=== PATIENT | female | born 1985 | race Caucasian/White ===

== ENCOUNTER 2016-08-25 11:28 | Emergency (ER) | payer OTHER ==
[~2016-08-25] VITALS: Wt 74.8 kg
[~2016-08-25 11:28] MED LIST: IBU-8800 MG; IBU-8800 MG PO; MOTRIN800 MG PO; PERCOCET 325 MG1 TA2 PO; PRENATAL1 TA1 PO; TRAMADOL HCL50 MG PO
[2016-08-25] MEDS ORDERED: PERCOCET 325 MG1 TA2 PO (13:43)
== END 2016-08-25 13:46 | disposition home or self-care (01) ==
LOC: ED 11:28
DX: S33.5XXA Sprain of ligaments of lumbar spine, initial encounter (principal); Z98.890 Other specified postprocedural states; Z79.899 Other long term (current) drug therapy; X58.XXXA Exposure to other specified factors, initial encounter; Y93.89 Activity, other specified; Y92.89 Other specified places as the place of occurrence of the external cause; Y99.9 Unspecified external cause status

== ENCOUNTER → 2016-09-01 | Outpatient (CLI) | payer OTHER ==
[2016-09-01 09:24] LABS: HEMATOCRIT 40.2 % (37.0-47.0); MEAN CELL VOLUME 85.2 fl (81.0-99.0); MEAN CORPUSCULAR HGB 27.5 pg (27.0-31.0); MEAN CORPUSCULAR HGB CONC 32.3 g/dl (33.0-37.0); RED BLOOD COUNT 4.72 10*6/uL (4.10-5.10); RED CELL DISTRI WIDTH 12.7 % (0-14.5); WHITE BLOOD COUNT 6.8 10*3/uL (4.8-10.8)
[2016-09-01 09:40] LABS: CHLORIDE 106 mmol/L (98-107); SODIUM 141 mmol/L (136-145)
[2016-09-01 10:02] LABS: ALBUMIN 3.8 gm/dl (3.1-4.5); ALKALINE PHOSPHATASE 63 U/L (45-117); BILIRUBIN, TOTAL 0.5 mg/dl (0.2-1.0); BUN 12 mg/dl (7-24); CARBON DIOXIDE 28 mmol/L (21-32); CHOLESTEROL 188 mg/dL (<200); EST GLOM FILT AFRICAN AMERICAN > 60 ml/min; GLUCOSE 89 mg/dL (65-99); HDL CHOLESTEROL 95 mg/dl (40-60); LDL CHOLESTEROL 83 mg/dL (9-159); SGOT/AST 31 IU/L (3-35); SGPT/ALT 43 U/L (12-78); TOTAL PROTEIN 7.4 gm/dL (6.4-8.2); TRIGLYCERIDES 49 mg/dl (<150); VLDL CHOLESTEROL 10 mg/dL (6-40)
[2016-09-01 10:04] LABS: VITAMIN D, 25-HYDROXY 26.6 ng/mL (30-100)
== END | disposition home or self-care (01) ==
LOC: LAB 08:58
PROVIDERS: Family Medicine
DX: K59.00 Constipation, unspecified (principal); E55.9 Vitamin D deficiency, unspecified; R53.83 Other fatigue

== ENCOUNTER → 2016-12-31 | Outpatient (CLI) | payer OTHER | END | disposition home or self-care (01) | LOC: US 13:30 | DX: N63 Unspecified lump in breast (principal); N64.4 Mastodynia ==

== ENCOUNTER 2018-12-25 18:34 | Inpatient (IN) | payer OTHER ==
[~2018-12-25] VITALS: Ht 165.1 cm; Wt 77.4 kg
--- NOTE | ~2018-12-25 | WRIGHTHP ---
[place], [place] PATIENT HISTORY AND PHYSICAL EXAM NAME: ALLYSSA WHEELER UNIT #: [id number] ROOM: [facility] DOCTOR: MAYA ALFONSO MD BIRTHDATE: [birth year] DOS: 12/26/2018 HISTORY OF PRESENT ILLNESS: The patient is 33 years old. The patient states that she had mowed her lawn, was putting a aircraft structural repairer away, was stung by a bee or a wasp, she is not entirely sure. Left side of her face got swollen. She had difficulty swallowing and arms and feet were tingling, so she decided to come into the Emergency Room. She had a bee sting about a year ago, which did not cause any troubles. In the ER, she was given epinephrine as well as Solu-Medrol and continued to have some swelling of the face and so she was admitted. This morning, she feels fine. She does not have any more complaints. Denies any chest pains, palpitations, shortness of breath. Does not have any fever, chills, not have any difficulty swallowing. PAST MEDICAL HISTORY: None significant. MEDICATIONS: None. SOCIAL HISTORY: She lives at home. She has 4 young kids. She is . FAMILY HISTORY: Significant for father with diabetes and hypertension. Mother is healthy. PHYSICAL EXAMINATION: GENERAL: She is awake and alert and oriented, in no distress. VITAL SIGNS: Graphic trend shows a pressure of 128/88, pulse of 68, respirations 18, temperature 98.2. LUNGS: Diminished breath sounds. Clear. HEART: Regular. ABDOMEN: Soft, scaphoid. EXTREMITIES: Without any edema. Left side of the face there is no evidence of swelling. ASSESSMENT AND PLAN: Bee sting with allergic reaction. This is resolved. The patient is stable and can be discharge to home today. The patient was given a prescription for EpiPen and a low dose cortisone for a few days. White cell count is elevated, most likely stress effect. [place], [place] PATIENT HISTORY AND PHYSICAL EXAM NAME: ALLYSSA WHEELER UNIT #: [id number] ROOM: [facility] DOCTOR: MAYA ALFONSO MD BIRTHDATE: [birth year] MAYA ALFONSO MD CM:HISPHYS:PATIENT HISTORY AND PHYSICAL EXAMINATION 5 8 MAYA ALFONSO MD 12/26/18918 interface
--- NOTE | ~2018-12-25 | EKG ---
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
[2018-12-25 18:34] VITALS: BP 162/95
--- NOTE | 2018-12-25 18:55 | NUR ---
PT SATES SHE IS FEELING MUCH BETTER, EPI EFFECTIVE.
[2018-12-25 19:08] LABS: BASO % 0.3 % (0.0-1.0); EOS # 0.1 10*3/uL (0.0-0.4); HEMATOCRIT 40.2 % (37.0-47.0); HEMOGLOBIN 13.3 g/dl (12.0-16.0); LYMPH # 3.8 10*3/uL (1.3-4.4); LYMPH % 33.7 % (27.0-41.0); MEAN CELL VOLUME 86.8 fl (81.0-99.0); MEAN CORPUSCULAR HGB 28.7 pg (27.0-31.0); MEAN CORPUSCULAR HGB CONC 33.1 g/dl (33.0-37.0); MEAN PLATELET VOLUME 9.9 fl (9.6-12.3); MONO # 0.8 10*3/uL (0.1-1.0); MONO % 6.8 % (3.0-9.0); NEUT # 6.5 10*3/uL (2.3-7.9); PLATELET COUNT AUTOMATED 328 10*3/uL (130-400); RED BLOOD COUNT 4.63 10*6/uL (4.10-5.10); RED CELL DISTRI WIDTH 12.3 % (0-14.5); WHITE BLOOD COUNT 11.2 10*3/uL (4.8-10.8)
[2018-12-25 19:25] LABS: ALBUMIN 4.2 gm/dl (3.1-4.5); ALKALINE PHOSPHATASE 41 U/L (45-117); BUN 10 mg/dl (7-24); CHLORIDE 104 mmol/L (98-107); CREATININE 0.74 mg/dL (0.55-1.02); POTASSIUM 3.2 mmol/L (3.5-5.1); SGOT/AST 14 IU/L (3-35); SGPT/ALT 21 U/L (12-78); SODIUM 137 mmol/L (136-145); TOTAL PROTEIN 7.5 gm/dL (6.4-8.2)
[2018-12-25 19:31] LABS: TROPONIN I < 0.015 ng/ml (<0.045)
[2018-12-25 19:33] VITALS: BP 122/53
[2018-12-25 20:35] VITALS: BP 107/57
--- NOTE | 2018-12-25 20:35 | NUR ---
A 33 YEAR OLD FEMALE PATIENT, admitted to [facility], under the services of MAYA Madsen MD with a diagnosis of ALLERGIC REACTION,ANGIOEDEMA, WASP STING. Chief complaint is WAS MOWING GRASS AND GOT STUNG BY A WASP ON THE SIDE OF THE FACE, FELT LIKE REATHING WAS DIFFICULT Patient arrived via CART WITH RN from ER. Monitor applied. Initial assessment completed. Vital signs taken and recorded. See assessment for past medical history, medications and allergies. Patient and/or family oriented to unit. [facility]. Clothing/patient valuable form completed. JONO SUN
--- NOTE | 2018-12-25 20:44 | NUR ---
ATTEMPTED TO CALL DR ALFONSO TO NOTIFY OF ADMISSION, NO ANSWER. WILL RETRY
--- NOTE | 2018-12-25 21:40 | NUR ---
DR ALFONSO CALLED BACK, ORDERS RECIEVED
[2018-12-26] VITALS: BP 96/48
[2018-12-26 04:00] VITALS: BP 108/59
[2018-12-26 06:04] LABS: HEMOGLOBIN 12.9 g/dl (12.0-16.0); LYMPH % 8.5 % (27.0-41.0); MEAN CELL VOLUME 87.3 fl (81.0-99.0); MEAN CORPUSCULAR HGB 28.2 pg (27.0-31.0); MEAN CORPUSCULAR HGB CONC 32.3 g/dl (33.0-37.0); MEAN PLATELET VOLUME 10.2 fl (9.6-12.3); MONO # 0.2 10*3/uL (0.1-1.0); MONO % 1.4 % (3.0-9.0); NEUT # 10.4 10*3/uL (2.3-7.9); NEUT % 89.7 % (47.0-73.0); PLATELET COUNT AUTOMATED 332 10*3/uL (130-400); RED BLOOD COUNT 4.58 10*6/uL (4.10-5.10); RED CELL DISTRI WIDTH 12.4 % (0-14.5); WHITE BLOOD COUNT 11.6 10*3/uL (4.8-10.8)
[2018-12-26 06:12] LABS: ALBUMIN 4.2 gm/dl (3.1-4.5); ALKALINE PHOSPHATASE 44 U/L (45-117); BUN 8 mg/dl (7-24); CHLORIDE 110 mmol/L (98-107); CREATININE 0.62 mg/dL (0.55-1.02); SGOT/AST 20 IU/L (3-35); SGPT/ALT 25 U/L (12-78); TOTAL PROTEIN 7.8 gm/dL (6.4-8.2)
--- NOTE | 2018-12-26 06:32 | NUR ---
PATIENT PROVIDED WITH COFFEE AND FRESH ICE WATER, DENIES OTHER NEEDS AT THIS TIME. CALL LIGHT WITHIN REACH. RN WILL CONTINUE TO MONITOR
[2018-12-26 06:35] LABS: SODIUM 138 mmol/L (136-145)
--- NOTE | 2018-12-26 07:13 | NUR ---
Shift chart check completed.24 HR chart check completed.
[2018-12-26] MEDS ORDERED: EPIPEN 2-P0.3 MG/0.3 IM (07:26)
[2018-12-26] MEDS ORDERED: PREDNISONE5 MG PO (07:26)
--- NOTE | 2018-12-26 07:38 | NUR ---
DR ALFONSO HAS VISITED. PT WILL BE DISCHARGED TO HOME. PT IS UP IN ROOM.
[2018-12-26 08:00] VITALS: BP 128/88
--- NOTE | 2018-12-26 08:14 | NUR ---
ON ASSESSMENT PATIENT IS UP AND ABOUT IN HER ROOM. NO FACIAL SWELLING, NO ORAL SWELLING. EATING BREAKFAST. CALLING FOR HER TO COME GET HER.
--- NOTE | 2018-12-26 09:26 | NUR ---
DISCHARGE INSTRUCTIONS TO PT. MONITOR AND HEP LOCK WERE REMOVED. PT LEFT, AMBULATORY, WITH ALL OF HER BELONGINGS/PRESCRIPTIONS. SHE WAS DISCHARGED IN STABLE CONDITION.
== END 2018-12-26 09:26 | disposition home or self-care (01) | DRG 918 ==
LOC: ED 18:34 → EDHOLD 19:12 → ICCU 19:47
PROVIDERS: Nurse Practitioner Family; ADMIT Internal Medicine
DX: T63.441A Toxic effect of venom of bees, accidental (unintentional), initial encounter (principal); T78.3XXA Angioneurotic edema, initial encounter; X58.XXXA Exposure to other specified factors, initial encounter; Z98.891 History of uterine scar from previous surgery; Y92.89 Other specified places as the place of occurrence of the external cause

== ENCOUNTER → 2019-11-07 | Outpatient (CLI) | payer OTHER ==
[~2019-11-07] MED LIST changes: +EPIPEN 2-P0.3 MG/0.3 IM; +PREDNISONE5 MG PO
== END | disposition home or self-care (01) ==
LOC: US 10:30
DX: N63.21 Unspecified lump in the left breast, upper outer quadrant (principal); N60.42 Mammary duct ectasia of left breast

== ENCOUNTER → 2019-11-17 | Outpatient (CLI) | payer OTHER ==
[2019-11-17 08:31] LABS: BASO % 0.3 % (0.0-1.0); EOS # 0.1 10*3/uL (0.0-0.4); EOS % 1.8 % (1.0-4.0); HEMATOCRIT 43.4 % (37.0-47.0); LYMPH # 2.3 10*3/uL (1.3-4.4); LYMPH % 36.7 % (27.0-41.0); MEAN CELL VOLUME 84.9 fl (81.0-99.0); MEAN CORPUSCULAR HGB 27.2 pg (27.0-31.0); MEAN PLATELET VOLUME 9.7 fl (9.6-12.3); MONO # 0.4 10*3/uL (0.1-1.0); MONO % 6.6 % (3.0-9.0); NEUT # 3.4 10*3/uL (2.3-7.9); NEUT % 54.4 % (47.0-73.0); PLATELET COUNT AUTOMATED 343 10*3/uL (130-400); RED BLOOD COUNT 5.11 10*6/uL (4.10-5.10); RED CELL DISTRI WIDTH 12.8 % (0-14.5); WHITE BLOOD COUNT 6.2 10*3/uL (4.8-10.8)
[2019-11-17 09:01] LABS: ALKALINE PHOSPHATASE 50 U/L (45-117); BUN 12 mg/dl (7-24); CHLORIDE 107 mmol/L (98-107); CREATININE 0.75 mg/dL (0.55-1.02); FREE T4 1.08 ng/dl (0.76-1.46); IRON 57 ug/dL (50-170); POTASSIUM 4.1 mmol/L (3.5-5.1); SGOT/AST 15 IU/L (3-35); SGPT/ALT 26 U/L (12-78); SODIUM 138 mmol/L (136-145); TOTAL IRON BINDING CAPACITY 360 ug/dl (250-450); TOTAL PROTEIN 8.3 gm/dL (6.4-8.2)
[2019-11-17 09:06] LABS: THYROID STIM HORMONE (HS) 0.971 uIU/ml (0.358-4.75)
[2019-11-17 09:59] LABS: FERRITIN 27.2 ng/mL (10.0-291.0); VITAMIN D, 25-HYDROXY 59.7 ng/mL (30-100)
== END | disposition home or self-care (01) ==
LOC: LAB 08:10
PROVIDERS: Dermatology
DX: L82.1 Other seborrheic keratosis (principal); D18.01 Hemangioma of skin and subcutaneous tissue; L64.8 Other androgenic alopecia

== ENCOUNTER → 2020-04-18 | Outpatient (CLI) | payer OTHER | END | disposition home or self-care (01) | LOC: COVID19 10:44 | PROVIDERS: ATTEND Family Medicine | DX: U07.1 COVID-19 (principal) ==

== ENCOUNTER → 2020-10-29 | Outpatient (CLI) | payer OTHER | END | disposition home or self-care (01) | LOC: US 14:30 | PROVIDERS: ATTEND Family Medicine | DX: M79.661 Pain in right lower leg (principal); R20.8 Other disturbances of skin sensation ==

== ENCOUNTER → 2021-02-06 | Outpatient (CLI) | payer OTHER ==
[2021-02-06 09:34] LABS: MEAN CELL VOLUME 85.2 fl (81.0-99.0); MEAN CORPUSCULAR HGB 27.6 pg (27.0-31.0); MEAN CORPUSCULAR HGB CONC 32.4 g/dl (33.0-37.0); MEAN PLATELET VOLUME 9.7 fl (9.6-12.3); RED BLOOD COUNT 4.93 10*6/uL (4.10-5.10); RED CELL DISTRI WIDTH 12.5 % (0-14.5); WHITE BLOOD COUNT 7.9 10*3/uL (4.8-10.8)
[2021-02-06 09:57] LABS: ALBUMIN 4.3 gm/dl (3.1-4.5); ALKALINE PHOSPHATASE 55 U/L (45-117); BUN 14 mg/dl (7-24); CHLORIDE 104 mmol/L (98-107); CREATININE 0.71 mg/dL (0.55-1.02); FREE T4 0.95 ng/dl (0.76-1.46); POTASSIUM 3.9 mmol/L (3.5-5.1); SGOT/AST 13 IU/L (3-35); SGPT/ALT 27 U/L (12-78); SODIUM 137 mmol/L (136-145); TOTAL PROTEIN 8.6 gm/dL (6.4-8.2)
[2021-02-06 10:39] LABS: VITAMIN D, 25-HYDROXY 51.8 ng/mL (30-100)
== END | disposition home or self-care (01) ==
LOC: LAB 09:08
PROVIDERS: ATTEND Family Medicine
DX: U07.1 COVID-19 (principal); R06.02 Shortness of breath; E55.9 Vitamin D deficiency, unspecified; R53.83 Other fatigue; M25.50 Pain in unspecified joint; R10.9 Unspecified abdominal pain; M79.10 Myalgia, unspecified site; M54.2 Cervicalgia

== ENCOUNTER → 2021-02-14 | Outpatient (CLI) | payer OTHER | END | disposition home or self-care (01) | LOC: CT 09:00 | PROVIDERS: ATTEND Family Medicine | DX: R22.1 Localized swelling, mass and lump, neck (principal) ==

== ENCOUNTER → 2021-03-06 | Outpatient (CLI) | payer OTHER | END | disposition home or self-care (01) | LOC: MRI 03-01 13:00 | PROVIDERS: ATTEND Family Medicine | DX: G93.89 Other specified disorders of brain (principal); R51.9 Headache, unspecified; R53.83 Other fatigue; R53.1 Weakness ==

== ENCOUNTER → 2021-03-11 | Outpatient (CLI) | payer OTHER ==
[2021-03-12 08:07] LABS: TOTAL PROTEIN, SERUM 7.4 g/dL (6.0-8.5)
[2021-03-12 14:08] LABS: A/G RATIO 1.1 (0.7-1.7); ALBUMIN 3.8 g/dL (2.9-4.4); ALPHA-1-GLOBULIN 0.3 g/dL (0.0-0.4); ALPHA-2-GLOBULIN 0.8 g/dL (0.4-1.0); BETA GLOBULIN 1.1 g/dL (0.7-1.3); GAMMA GLOBULIN 1.4 g/dL (0.4-1.8); GLOBULIN, TOTAL 3.6 g/dL (2.2-3.9); M-SPIKE Not Observed g/dL (Not Observed)
[2021-03-13 15:07] LABS: ALBUMIN, URINE 29.8 % (.); ALPHA-1-GLOBULIN, URINE 5.6 % (.); ALPHA-2-GLOBULIN, URINE 20.8 % (.); BETA GLOBULIN, URINE 11.7 % (.); GAMMA GLOBULIN, URINE 32.1 % (.); M-SPIKE, % Not Observed % (Not Observed); PROTEIN,TOTAL - URINE RANDOM <4.0 mg/dL (Not Estab.)
== END | disposition home or self-care (01) ==
LOC: LAB 10:10
PROVIDERS: ATTEND Family Medicine
DX: E88.09 Other disorders of plasma-protein metabolism, not elsewhere classified (principal)

== ENCOUNTER → 2022-12-25 | Outpatient (CLI) | payer OTHER | END | disposition home or self-care (01) | LOC: MRI 01:16 | PROVIDERS: ATTEND Family Medicine | DX: G93.9 Disorder of brain, unspecified (principal); R90.82 White matter disease, unspecified ==